=== PATIENT | male | born 1995 | race Caucasian/White ===

== ENCOUNTER 2019-01-13 11:10 | Emergency (ER) | payer SELFPAY ==
[2019-01-13 11:11] VITALS: BP 119/71; PULSE 85; RESP 16; TEMP 36.8; O2SAT 99; BMI 22.9
--- NOTE | 2019-01-13 11:45 | ED.VISSUMM ---
- ER Visit Summary Date of Service: 01/13/19 Chief Complaint: Dental pain History of Present Illness: The patient is a 23 M who presents with left upper dental pain and swelling that began today. Patient describes the pain is stabbing and throbbing. Patient states pain is over the left upper second molar and left upper cheek. Patient admits to swelling of his jaw and face. Patient admits to a fever of 101. Patient also admits to cold sensitivity. Patient states she does not have a dentist. Physical Examination: Vital signs are stable. Patient is afebrile. Patient is in no acute distress. Oral mucosa is pink and moist. Oropharynx is clear. Airway is patent. There are multiple dental caries noted. There is tenderness over the left upper second molar. There is some mild gingival edema around this tooth. There is also edema of the left cheek. There is no fluctuance or drainage noted. Neck is supple. Trachea is midline. There is no JVD noted. Heart was regular rate and rhythm. Lungs are clear and equal bilateral. Emergency Department Course and Treatment: Patient was given a prescription for amoxicillin. Patient was instructed to follow-up with a dentist in 5-7 days. Patient was instructed to use ice to the area. Patient was instructed to return if worse in any way. Patient understood and was agreeable with the plan. All questions were answered. Disposition: Discharge home Impression: Infected dental caries This note was generated with Revert dictation software. It may contain incorrect words, spelling, and punctuation that were not noted in review of the chart prior to signing ED Disposition - Plan for ED Patient: Disposition: Home or Assisted Living Diagnosis: Dental abscess Instructions: ED Abscess Dental Prescriptions: Amoxicillin 500 mg PO TID #30 tab Additional Instructions: You will need to follow-up with a dentist for definitive care of your teeth.
[2019-01-13 11:55] VITALS: PULSE 83; RESP 16
== END 2019-01-13 11:56 | disposition home or self-care (01) ==
PROVIDERS: Emergency Provider Emergency Medicine
DX: K04.7 Periapical abscess without sinus (principal); K02.9 Dental caries, unspecified; Z72.0 Tobacco use
CPT/HCPCS: 99282

== ENCOUNTER 2019-03-19 21:20 | Emergency (ER) | payer SELFPAY ==
[2019-03-19 21:22] VITALS: BP 114/64; PULSE 88; RESP 16; TEMP 36.3; O2SAT 97; BMI 20.7
--- NOTE | 2019-03-19 21:50 | RAD_ITS ---
STUDY: X-RAY - RIGHT WRIST REASON FOR EXAM: Male, 23 years old. Pain status post fall. TECHNIQUE: 3 view(s) of the wrist were obtained. COMPARISON: None. FINDINGS: Normal visualized distal radius and ulna. Normal radiocarpal articulation. Normal distal radioulnar articulation. Normal carpal bones. Normal carpal articulations. Normal carpometacarpal articulation of the thumb. Normal second through fifth carpometacarpal articulations. Normal visualized metacarpal bones. The soft tissue structures are unremarkable. RAD/Wrist min 3 Views IMPRESSION: Normal x-ray examination of the wrist. Electronically Signed: Dahlia Vera MD at 22:05 EDT Tel , Service support ,
--- NOTE | 2019-03-19 21:53 | ED.VIS.GEN ---
History of Present Illness Chief Complaint: Upper Extremity Injury Informant: Patient Onset: Today Current Severity: Mild Narrative: He was mowing grass he fell into the type of hole he used his hand to brace his fall injured his right wrist today no other complaints he is able to take nonsteroidals he has no head neck chest or abdominal pain no numbness 6 paresthesias most of his pain is over the ulnar side of the right wrist denies a past history Past Medical History - Allergies and Home Meds Allergies/Adverse Reactions: Allergies aspirin [ASA] Allergy (Verified 03/19/19 21:23) Other Primary Care Physician: Care Physician,No Primary [Primary Care Provider] - Past Medical History: None Smoking Status: Unknown if ever smoked Review of Systems All systems negative except as indicated General: Denies: Chills, Fever, Sweats Eyes: Denies: Visual changes - bilaterally, Diplopia ENT: Denies: Rhinorrhea, Sore throat Cardiovascular: Denies: Chest pain, Palpitations Respiratory: Denies: Dyspnea, Cough, Dyspnea on exertion Gastrointestinal: Denies: Abdominal pain, Nausea, Vomiting, Diarrhea, Melena, Hematochezia Genitourinary: Denies: Dysuria, Hematuria, Frequency Musculoskeletal: Reports: Extremity Pain. Denies: Back pain Skin: Denies: Rash, Wounds Neurological: Denies: Headache, Weakness, Numbness Physical Exam Vital Signs/Narrative: Vital Signs Temp Pulse Resp BP Pulse Ox 03/19/19 21:22 97.4 F L 88 16 114/64 97 General: Well nourished, Well developed, No Acute Distress Head: Normocephalic, Atraumatic Eyes: Perrl, EOMI ENT: Moist mucous membranes, No rhinorrhea Neck: Supple, Nontender Cardiovascular: Regular rate, Regular rhythm, No murmurs Respiratory: No distress, CTA bilaterally, Chest nontender Abdomen: Soft, Nontender, Nondistended, Normal bowel sounds Back: Nontender, Normal Inspection Extremities: No edema, Tenderness, - - He has decreased range of motion to the right wrist there is no instability deformity he has some discomfort over the ulnar side of the wrist hand function is normal finger cascade appears normal thumb function is normal sensation is normal radial pulses normal cap refill normal all digits Skin: Normal color, No rash Neurological: Alert, Oriented x3, Cranial nerves II-XII grossly intact, Normal Strength, Normal Sensation Psychological: Normal affect, Normal Mood Diagnostic/Tx/Re-eval - Medical Decision Making The patient differential certainly include fracture he is medicated x-rays obtained The wrist x-ray per radiology shows nothing acute I explained to the concept of an occult injury, he started on a Velcro wrist splint for immobilization prefabricated, he will take any medication [id number] he does not take for pain he saw Dr. Riley who is outpatient providers return for change in symptoms Final impression Acute right wrist injury ED Disposition - Plan for ED Patient: Diagnosis: Wrist injury Referrals: Care Physician,No Primary [Primary Care Provider] - Moe Riley MD [STAFF PHYSICIAN] -
[2019-03-19] MEDS: HYDROcodone Bitartrate/Apap 5/325 Tablet PO (21:59)
[2019-03-19] MEDS: Ibuprofen 600 MG Tablet PO (21:59)
[2019-03-19 23:08] VITALS: RESP 16
== END 2019-03-19 23:08 | disposition home or self-care (01) ==
PROVIDERS: Emergency Provider Emergency Medicine; Family Provider Family Medicine; PCP Family Medicine
DX: S69.91XA Unspecified injury of right wrist, hand and finger(s), initial encounter (principal); W17.2XXA Fall into hole, initial encounter; Y93.9 Activity, unspecified; Y92.9 Unspecified place or not applicable
CPT/HCPCS: 73110; 99284

== ENCOUNTER 2020-01-26 14:49 | Emergency (ER) | payer MEDICAID, SELFPAY ==
[2020-01-26 14:50] VITALS: BP 120/81; PULSE 98; RESP 16; TEMP 37.3; O2SAT 97; BMI 24.3
--- NOTE | 2020-01-26 16:13 | ED.VISSUMM ---
- ER Visit Summary Date of Service: 01/26/20 Chief Complaint: Right thigh pain History of Present Illness: The patient is a 24 M who presents with pain in his right thigh that began 1 week ago. Patient states he was riding a bicycle between [place] and [place] and felt a pop in his right thigh. Patient states the pain is worse with weightbearing. Patient describes the pain as aching. Patient denies any paresthesias or weakness. Patient states she has been having difficulty moving his right leg due to the pain but denies any weakness. Physical Examination: Vital signs are stable. Patient is afebrile. Patient is in no acute distress. Musculoskeletal exam reveals tenderness over the anterior medial aspect of the right thigh. There is no edema or ecchymosis. There is no bony crepitance or step-off. There is no obvious deformity. Strength is 5/5 in extension of the knee and flexion of the hip. There are no sensory deficits noted. Range of motion was limited in all motion secondary to pain. Pedal pulses are equal bilateral. There are no sensory deficits noted. Emergency Department Course and Treatment: Patient was instructed to use ice to the area. Patient was given a prescription for ibuprofen. Patient was instructed to follow-up with his primary care physician in 5 to 7 days. Patient was given crutches. Patient understood and was agreeable with the plan. All questions were answered. Disposition: Discharge home Impression: Muscle strain right thigh This note was generated with Emergent One dictation software. It may contain incorrect words, spelling, and punctuation that were not noted in review of the chart prior to signing ED Disposition - Plan for ED Patient: Disposition: Home or Assisted Living Diagnosis: Muscle strain of right thigh Instructions: ED Strain Muscle Ext Prescriptions: Ibuprofen [Motrin] 800 mg PO TID PRN PRN #20 tab PRN Reason: Pain Score 1-10/10 Prescription Printed Referrals: Avril Coyle MD [NON-STAFF] - 3-5 Days
== END 2020-01-26 16:37 | disposition home or self-care (01) ==
PROVIDERS: Emergency Provider Emergency Medicine
DX: S76.911A Strain of unspecified muscles, fascia and tendons at thigh level, right thigh, initial encounter (principal); X58.XXXA Exposure to other specified factors, initial encounter; Y93.55 Activity, bike riding; Y92.9 Unspecified place or not applicable; F17.200 Nicotine dependence, unspecified, uncomplicated
CPT/HCPCS: 99282

== ENCOUNTER 2020-03-17 20:14 | Emergency (ER) | payer MEDICAID, SELFPAY ==
[2020-03-17 20:14] VITALS: BP 143/74; PULSE 71; RESP 16; TEMP 36.6; O2SAT 99; BMI 22.8
--- NOTE | 2020-03-17 20:36 | CT_ITS ---
STUDY: CT ABDOMEN AND PELVIS WITH CONTRAST REASON FOR EXAM: Male, 24 years old. RLQ PAIN AND HEMATURIA TODAY RADIATION DOSAGE (If Supplied By Facility): CTDIvol = ( 14.64 ) mGy, DLP = ( 718.49 ) mGycm TECHNIQUE: Transaxial images were obtained from the dome of the diaphragm to the symphysis pubis without oral contrast. Oral and amp; IV Gastrografin and amp; 100mL Isovue-370 was administered. Sagittal and coronal images were reconstructed. Individualized dose optimization techniques were used for this CT. COMPARISON: None. FINDINGS: The visualized lung bases are unremarkable. The visualized portions of the heart are within normal limits. Normal liver. Normal gallbladder and extrahepatic biliary system. Normal spleen. Normal pancreas. Normal bilateral adrenal glands. Subcentimeter simple cyst upper pole right kidney. Otherwise normal right kidney Normal left kidney. Negative for hydronephrosis, renal, ureteral or bladder stones. Food filled stomach. Normal small intestine. Normal colon. The appendix is not identified with complete certainty. I think a small portion of the appendix is identified on sagittal image #57 and coronal images 39 through 43 which appears normal size. Negative for any inflammation in the right abdomen. Normal abdominal aorta. Normal inferior vena cava. Normal retroperitoneum. Normal urinary bladder. Normal abdominal wall. Normal osseous structures. CT/Abdomen/Pelvis WITH Contrast IMPRESSION: No acute bowel related findings. Negative for evidence of obstruction, perforation or inflammatory bowel changes. At least a portion of the appendix is identified and appears unremarkable with no evidence of inflammation in the right lower quadrant. Normal kidneys bilaterally without hydronephrosis, renal or ureteral stones. Unremarkable urinary bladder. Subcentimeter cyst of the right kidney. No additional workup evaluated. Unremarkable liver, spleen and pancreas with a nondistended gallbladder. Electronically Signed: Jennifer Brar MD at 23:15 EDT , Service support ,
[2020-03-17 20:42] LABS: Color, Urine Yellow (Yellow); Glucose, Dipstick Normal (Normal); Ketone-Dipstick 5 mg/dl (Negative); Leukocyte Esterase-Dipstick 25 /ul (Negative); Nitrite-Dipstick Negative (Negative); Occult Blood-Urine Negative /ul (Negative); Protein-Dipstick 30 mg/dl (Negative); Specific Gravity, Urine 1.025 (1.002-1.030); Urine Clarity Sl. Cloudy (Clear); Urine Urobilinogen 4 mg/dl (Normal)
[2020-03-17 20:43] LABS: Bacteria 0 SEEN /hpf (None Seen); Red Blood Cells-Urine 0 SEEN /hpf (0-5); Squamous Epithelial Cells - UA 0 SEEN /hpf (0-5)
[2020-03-17 20:49] LABS: Urine Bilirubin Dipstick 1 mg/dL (Negative)
[2020-03-17 20:53] LABS: Absolute Neutrophil Count 3.7 X10^3/uL (2.0-7.7); Basophil# 0.07 X10^3/uL; Basophil% 0.9 % (0-1); Eosinophil# 0.24 X10^3/uL; Eosinophils% 3.1 % (0-5); Hematocrit 46.2 % (40-54); Hemoglobin 15.5 g/dL (13.0-16.5); Lymphocyte % 39.6 % (19-41); Mean Corp Hgb Conc 33.5 g/dL (32-36); Mean Corpuscular Hgb 29.7 pg (27.0-32.0); Mean Corpuscular Volume 88.5 fL (80-94); Mean Platelet Vol. 11.8 fl (6.2-12.0); Monocyte# 0.72 X10^3/uL; Monocyte% 9.2 % (0-10); NRBC Flagged by Analyzer 0 % (0-5); Neutrophil # 3.68 X10^3/uL (2.7-7.7); Neutrophil % 47.1 % (47-70); Platelet Count 172 K/mm3 (150-450); RBC Distribution Width CV 13.2 % (11.6-14.6); RBC Distribution Width SD 42.5 fl (35.1-43.9); Red Blood Count 5.22 M/mm3 (4.6-6.2); White Blood Count 7.8 K/mm3 (4.4-11.0)
[2020-03-17 21:03] VITALS: RESP 16
[2020-03-17] MEDS: 0.9% Normal Saline 1,000 ML 125 ML IV (21:05)
[2020-03-17 21:07] LABS: Mucous, Urine 4+ /hpf (<or=2+); White Blood Cells 0-5 SEEN /hpf (0-5)
[2020-03-17 21:08] LABS: Calcium Oxalate Crystals Ur 1+ /hpf (<or=2+)
[2020-03-17 21:09] LABS: Anion Gap 4 (5-15); BUN 9 mg/dL (7-18); BUN/Creat Ratio 9.6 RATIO (10-20); Chloride 108 mmol/L (98-107); Creatinine, Serum 0.93 mg/dL (0.70-1.30); EST Glomerular Filtration Rate 107 mL/min (>60); Est Glom Filt Rate - Afr Amer 129 mL/min (>60); Estimated Creatinine Clearance 127.09 ml/min; Glucose 93 mg/dL (74-106); Potassium 3.9 mmol/L (3.5-5.1); Sodium Level 141 mmol/L (136-145)
[2020-03-17 23:00] VITALS: RESP 16
--- NOTE | 2020-03-17 23:30 | ED.DCSUM_ITS ---
History of Present Illness Chief Complaint: Complaint Narrative: Patient presenting secondary to suprapubic pain. Patient reports that just prior to arrival he had relatively sudden onset of severe pain in his suprapubic region. Patient reports that it was sharp and continuous worse with palpation and movement. Patient states that the pain has somewhat subsided, but now is located in his lower abdomen and his right lower quadrant. Patient does endorse some dysuria and dark-colored urine associated with this. Denies any fevers. Denies any nausea vomiting or diarrhea. Pain is moderate. No history of abdominal surgeries. Review of systems otherwise negative. Past Medical History - Allergies and Home Meds Allergies/Adverse Reactions: Allergies aspirin [ASA] Allergy (Verified 03/17/20 20:16) Other Primary Care Physician: Care Physician,No Primary [Primary Care Provider] - Prior records reviewed: Yes Past Medical History: None Lives: With Family Smoking Status: Current every day smoker Alcohol: Occasional Drugs: None Review of Systems All systems negative except as indicated General: Denies: Chills, Fever, Sweats Eyes: Denies: Visual changes - bilaterally, Diplopia ENT: Denies: Rhinorrhea, Sore throat Cardiovascular: Denies: Chest pain, Palpitations Respiratory: Denies: Dyspnea, Cough, Dyspnea on exertion Gastrointestinal: Reports: Abdominal pain Genitourinary: Reports: Dysuria Musculoskeletal: Denies: Back pain, Extremity Pain Skin: Denies: Rash, Wounds Neurological: Denies: Headache, Weakness, Numbness Physical Exam Vital Signs/Narrative: Vital Signs Temp Pulse Resp BP Pulse Ox 03/17/20 23:00 16 03/17/20 21:03 16 03/17/20 20:14 98 F 71 16 143/74 H 99 Inital Vital Signs reviewed: Yes General: Well nourished, Well developed, No Acute Distress Head: Normocephalic, Atraumatic Eyes: Perrl, EOMI ENT: Moist mucous membranes, No rhinorrhea Neck: Supple, Nontender Cardiovascular: Regular rate, Regular rhythm, No murmurs Respiratory: No distress, CTA bilaterally, Chest nontender Abdomen: Tender - Right lower quadrant with no guarding or rebound Back: Nontender, Normal Inspection Extremities: Nontender, No edema Skin: Normal color, No rash Neurological: Alert, Oriented x3, Cranial nerves II-XII grossly intact, Normal Strength, Normal Sensation Psychological: Normal affect, Normal Mood Diagnostic/Tx/Re-eval Clinical Impression(s) from Imaging Studies Abdomen/Pelvis CT 03/17/20 20:36 IMPRESSION: No acute bowel related findings. Negative for evidence of obstruction, perforation or inflammatory bowel changes. At least a portion of the appendix is identified and appears unremarkable with no evidence of inflammation in the right lower quadrant. Normal kidneys bilaterally without hydronephrosis, renal or ureteral stones. Unremarkable urinary bladder. Subcentimeter cyst of the right kidney. No additional workup evaluated. Unremarkable liver, spleen and pancreas with a nondistended gallbladder. Electronically Signed: Jennifer Brar MD at 23:15 EDT , Service support , Laboratory Data 03/17/20 03/17/20 03/17/20 20:25 20:45 20:45 WBC 7.8 RBC 5.22 Hgb 15.5 Hct 46.2 MCV 88.5 MCH 29.7 MCHC 33.5 RDW Std Deviation 42.5 RDW Coeff of Jessie 13.2 Plt Count 172 MPV 11.8 Immature Gran % (Auto) 0.100 Neut % (Auto) 47.1 Lymph % (Auto) 39.6 [place] % (Auto) 9.2 Eos % (Auto) 3.1 Baso % (Auto) 0.9 Absolute Neuts (auto) 3.7 Absolute Lymphs (auto) 3.10 Nucleated RBC % 0 Sodium 141 Potassium 3.9 Chloride 108 H Carbon Dioxide 29.0 Anion Gap 4 L BUN 9 Creatinine 0.93 Estim Creat Clear Calc 127.09 Est GFR (MDRD) Af Amer 129 Est GFR (MDRD) Non-Af 107 BUN/Creatinine Ratio 9.6 L Glucose 93 Calcium 9.0 Urine Color Yellow Urine Clarity Sl. Cloudy Urine pH 5.0 Ur Specific [place] 1.025 Urine Protein 30 H Urine Glucose (UA) Normal Urine Ketones 5 H Urine Occult Blood Negative Urine Nitrite Negative Urine Bilirubin 1 H Urine Urobilinogen 4 H Ur Leukocyte Esterase 25 H Urine RBC 0 SEEN Urine WBC 0-5 SEEN Ur Squamous Epith Cells 0 SEEN Calcium Oxalate Crystal 1+ Urine Bacteria 0 SEEN Urine Mucus 4+ - Medical Decision Making Patient presented secondary to abdominal pain. This did localize in the right lower quadrant, although the sudden onset would seem consistent with stone disease, his location would be concerning for appendicitis. Work-up was obtained. CBC and chemistry unremarkable. Urinalysis shows calcium oxalate crystals but no infection. CT abdomen and pelvis was negative for any acute pathology per radiology. Given the calcium oxalate crystals in the patient's urine am suspicious for a passed renal stone. Patient was symptom-free upon repeat evaluation. Patient was discharged with outpatient follow-up with primary care as needed. ED Disposition - Plan for ED Patient: Disposition: Home or Assisted Living Diagnosis: Urolithiasis Instructions: ED RENAL STONE Passed Referrals: Elisabet Philippe [NON-STAFF] - As Needed
[2020-03-17 23:42] VITALS: BP 136/80; PULSE 87; RESP 16; O2SAT 98
== END 2020-03-17 23:43 | disposition home or self-care (01) ==
PROVIDERS: Emergency Provider Emergency Medicine
DX: N20.0 Calculus of kidney (principal); F17.200 Nicotine dependence, unspecified, uncomplicated
CPT/HCPCS: 74177; 80048; 81001; 85025; 96360; 96361; 99282; J7030; Q9967; A4216

== ENCOUNTER 2020-05-31 19:33 | Emergency (ER) | payer MEDICAID, SELFPAY ==
[2020-05-31 19:34] VITALS: BP 127/84; PULSE 63; RESP 18; TEMP 36.9; O2SAT 99; BMI 23.6
[2020-05-31 19:43] VITALS: BP 137/75; PULSE 58; RESP 11; O2SAT 99
--- NOTE | 2020-05-31 19:54 | EKG12_ITS ---
Test Reason : CP Blood Pressure : / mmHG Vent. Rate : 065 BPM Atrial Rate : 065 BPM P-R Int : 144 ms QRS Dur : 100 ms QT Int : 370 ms P-R-T Axes : 055 054 030 degrees QTc Int : 384 ms Sinus rhythm with marked sinus arrhythmia Moderate voltage criteria for LVH, may be normal variant Borderline ECG Confirmed by SHEILA HILL ([id number]), online editor KUSH JAMES ([id number]) on 06/06/2020 9:50:38 AM Referred By: HANSEL Confirmed By:SHEILA HILL
--- NOTE | 2020-05-31 19:55 | ED.VIS.CHEST ---
History of Present Illness Chief Complaint: Chest Pain Informant: Patient, EMS Onset: Hours - 2 Activity at onset: - - Argument with fijasson?'s mother Timing: Continuous Quality: - - [place] Location: Left Chest Current Severity: Mild Maximum Severity: Moderate Worsened By: Nothing Relieved By: Nothing Associated Symptoms: Dyspnea. Negative for: Nausea, Vomiting, Diaphoresis, Cough, Fever, Lightheadedness, Palpitations Narrative: Patient states he has anxiety, and was in a verbal altercation with his fijasson?'s mother today, once she found out that the patient's fianc? had a positive home test. As a result, he started developing chest discomfort during the argument. 911 was called. He developed discomfort going down into his left upper extremity including tingling in his fingertips. Discomfort nonpleuritic. No recent travel, surgery/hospitalization or other reason for immobilization, no leg pain or swelling recently, no history of DVT or PE. No history of heart problems that he knows of. He does not use any illicit substances. He is feeling much better now. Patient is alone in the room and not feeling anxious anymore. He states he has had anxiety attacks in the past but never had chest discomfort with them like he did with this episode. - Past Medical History (1) Bipolar 1 disorder Status: Chronic (2) Anxiety Status: Chronic Past Medical History - Allergies and Home Meds Allergies/Adverse Reactions: Allergies aspirin [ASA] Allergy (Verified 05/31/20 19:37) Other Primary Care Physician: Doctor,Your [STAFF PHYSICIAN] - 5-7 Days Smoking Status: Current every day smoker Drugs: None Review of Systems General: Denies: Chills, Fever, Sweats Eyes: Denies: Visual changes - bilaterally, Diplopia ENT: Denies: Rhinorrhea, Sore throat Cardiovascular: Reports: Chest pain. Denies: Palpitations Respiratory: Reports: Dyspnea. Denies: Cough, Dyspnea on exertion Gastrointestinal: Denies: Abdominal pain, Nausea, Vomiting, Diarrhea, Melena, Hematochezia Genitourinary: Denies: Dysuria, Hematuria, Frequency Musculoskeletal: Reports: Extremity Pain. Denies: Myalgias, Neck pain, Back pain, Swelling Skin: Denies: Rash, Wounds Neurological: Denies: Headache, Weakness, Numbness Physical Exam Vital Signs/Narrative: Vital Signs Temp Pulse Resp BP Pulse Ox 05/31/20 19:34 98.5 F 63 18 127/84 H 99 Inital Vital Signs reviewed: Yes General: Well nourished, Well developed, No Acute Distress Head: Normocephalic, Atraumatic Eyes: Perrl, EOMI ENT: Moist mucous membranes, No rhinorrhea Neck: Supple, Nontender, No JVD Cardiovascular: Regular rate, Regular rhythm, No murmurs, Normal S1, Normal S2, - - Equal bilateral 2+/4 radial pulses. Negative for: Tachycardia Respiratory: No distress, CTA bilaterally, Chest nontender Abdomen: Soft, Nontender, Nondistended, Normal bowel sounds Back: Nontender, Normal Inspection Extremities: Nontender, No edema. Negative for: Calf Tenderness Skin: Normal color, No rash, No Trauma Neurological: Alert, Oriented x3, Cranial nerves II-XII grossly intact, Normal Strength, Normal Sensation Psychological: Normal affect, Normal Mood Diagnostic/Tx/Re-eval Impressions Chest X-Ray 05/31/20 20:13 IMPRESSION: No acute cardiopulmonary disease. Electronically Signed: John Hernandez DO at 20:23 EDT Tel [phone], Service support , 05/31/20 20:13 Chest 1 View (Portable) [RAD] Stat Laboratory Results 05/31/20 05/31/20 20:08 20:08 WBC 10.2 RBC 5.26 Hgb 15.9 Hct 47.7 MCV 90.7 MCH 30.2 MCHC 33.3 RDW Std Deviation 41.1 RDW Coeff of Jessie 12.5 Plt Count 168 MPV 11.4 Immature Gran % (Auto) 0.300 Neut % (Auto) 64.7 Lymph % (Auto) 24.8 [place] % (Auto) 8.0 Eos % (Auto) 1.7 Baso % (Auto) 0.5 Absolute Neuts (auto) 6.6 Absolute Lymphs (auto) 2.53 Nucleated RBC % 0 Sodium 140 Potassium 3.8 Chloride 107 Carbon Dioxide 28.0 Anion Gap 5 BUN 14 Creatinine 0.77 Estim Creat Clear Calc 155.38 Est GFR (MDRD) Af Amer 162 Est GFR (MDRD) Non-Af 134 BUN/Creatinine Ratio 18.2 Glucose 85 Calcium 9.3 Troponin I < 0.015 - Rhythm Strip Rhythm Strip: Sinus Rhythm - With sinus arrhythmia Rate: 65 Ectopy: None - EKG Initial EKG Interpretation: No Acute Injury Pattern, Sinus Arrythmia Treatment: GI Cocktail Repeat Eval: Pain Free JIGAR Risk: No Positive JIGAR Elements Score: 0 - Medical Decision Making Patient's discomfort went away with a GI cocktail and his work-up is negative. I feel this was very unlikely to be cardiac in nature, I feel he can be discharged home safely without performing a 3-hour delta, discussed everything with the patient he is comfortable with this plan will follow-up with his doctor. On discharge his blood pressure is 122/76. ED Disposition - Plan for ED Patient: Disposition: Home or Assisted Living Diagnosis: Atypical chest pain Instructions: ED Chest Pain NonCardiac Referrals: Doctor,Your [STAFF PHYSICIAN] - 5-7 Days
[2020-05-31] MEDS: Mag Hydrox/Al Hydrox/Simeth 30 ML UDC PO (20:07)
--- NOTE | 2020-05-31 20:13 | RAD_ITS ---
STUDY: X-RAY CHEST REASON FOR EXAM: Male, 24 years old. Chest pain. TECHNIQUE: Single AP portable view of the chest. COMPARISON: None. FINDINGS: The lungs are clear and expanded. There is no demonstrated pleural abnormality. Normal size heart. Normal mediastinum and ylnn. Normal visualized pulmonary arteries. Normal visualized aortic arch and descending thoracic aorta. Normal visualized thoracic spine. Normal visualized ribs, clavicles, and shoulders. There is no demonstrated abnormality of the visualized soft tissue structures of the upper abdomen. RAD/Chest 1 View (Portable) IMPRESSION: No acute cardiopulmonary disease. Electronically Signed: John Hernandez DO at 20:23 EDT Tel [phone], Service support ,
[2020-05-31 20:15] LABS: Absolute Lymphocyte Count 2.53 X10^3/uL (0.83-4.51); Absolute Neutrophil Count 6.6 X10^3/uL (2.0-7.7); Basophil# 0.05 X10^3/uL; Basophil% 0.5 % (0-1); Eosinophil# 0.17 X10^3/uL; Eosinophils% 1.7 % (0-5); Hematocrit 47.7 % (40-54); Hemoglobin 15.9 g/dL (13.0-16.5); Lymphocyte # 2.53 X10^3/ul (4.0); Lymphocyte % 24.8 % (19-41); Mean Corp Hgb Conc 33.3 g/dL (32-36); Mean Corpuscular Hgb 30.2 pg (27.0-32.0); Mean Corpuscular Volume 90.7 fL (80-94); Mean Platelet Vol. 11.4 fl (6.2-12.0); Monocyte# 0.82 X10^3/uL; NRBC Flagged by Analyzer 0 % (0-5); Neutrophil % 64.7 % (47-70); Platelet Count 168 K/mm3 (150-450); RBC Distribution Width CV 12.5 % (11.6-14.6); RBC Distribution Width SD 41.1 fl (35.1-43.9); Red Blood Count 5.26 M/mm3 (4.6-6.2); White Blood Count 10.2 K/mm3 (4.4-11.0)
[2020-05-31 20:38] LABS: Anion Gap 5 (5-15); BUN 14 mg/dL (7-18); BUN/Creat Ratio 18.2 RATIO (10-20); Calcium,Total 9.3 mg/dL (8.5-10.1); Chloride 107 mmol/L (98-107); Creatinine, Serum 0.77 mg/dL (0.70-1.30); EST Glomerular Filtration Rate 134 mL/min (>60); Est Glom Filt Rate - Afr Amer 162 mL/min (>60); Estimated Creatinine Clearance 155.38 ml/min; Glucose 85 mg/dL (74-106); Potassium 3.8 mmol/L (3.5-5.1); Sodium Level 140 mmol/L (136-145)
[2020-05-31 21:04] VITALS: BP 120/77; PULSE 69; RESP 16; O2SAT 100
== END 2020-05-31 21:05 | disposition home or self-care (01) ==
PROVIDERS: Emergency Provider Emergency Medicine
DX: R07.89 Other chest pain (principal); R06.00 Dyspnea, unspecified; F31.9 Bipolar disorder, unspecified; F41.9 Anxiety disorder, unspecified; F17.200 Nicotine dependence, unspecified, uncomplicated
CPT/HCPCS: 71045; 80048; 84484; 85025; 93005; 99285; A4216

== ENCOUNTER 2020-07-31 01:50 | Emergency (ER) | payer MEDICAID, SELFPAY ==
[2020-07-31 01:50] VITALS: BP 171/82; PULSE 102; RESP 16; TEMP 36.8; O2SAT 99; BMI 25.1
--- NOTE | 2020-07-31 01:53 | ED.DCSUM_ITS ---
History of Present Illness Chief Complaint: Upper Extremity Injury Informant: Patient Occurred: Yesterday - if injured; I'm not sure what I did to it Context: - - upon waking up this AM, over 12 hrs ago Current Severity: 10 Maximum Severity: /10 Worsened by: moving fingers Relieved by: remaining still Associated Symptoms: Negative for: Parasthesia, Weakness, Loss of Funtion Narrative: [id number] male states he woke up with pain in his hand that has been there all day, he states he injured it but does not remember what he did to it. - Past Medical History (1) Anxiety Status: Chronic (2) Bipolar 1 disorder Status: Chronic Past Medical History - Allergies and Home Meds Allergies/Adverse Reactions: Allergies aspirin [ASA] Allergy (Verified 07/31/20 01:53) Other Primary Care Physician: Care Physician,No Primary [NON-STAFF] - Smoking Status: Current every day smoker Review of Systems General: Denies: Chills, Fever, Sweats Musculoskeletal: Reports: Extremity Pain Skin: Denies: Rash, Wounds Neurological: Denies: Headache, Weakness, Numbness Physical Exam Vital Signs/Narrative: Vital Signs Temp Pulse Resp BP Pulse Ox 07/31/20 01:50 98.2 F 102 H 16 171/82 H 99 General: Well nourished, Well developed, - - Well-appearing no distress Head: Normocephalic, Atraumatic Extremeties: Normal-appearing right hand. All fingers extend normally. He is able to flex his fingers just barely, he does not appear to put forth much effort, I am able to confirm that his FDP tendons are intact throughout all fingers, he is not able to bend his fingers when attempting to isolate the FDS. He has tenderness dorsally at the distal aspects of metacarpals 3-5. Nothing else is tender. No deformities. Unable to assess for rotational deformity of the small finger. Skin: Normal color, No rash, No Trauma Neurological: Alert, Oriented x3, Cranial nerves II-XII grossly intact, Normal Strength, Normal Sensation, Normal Gait Diagnostic/Tx/Re-eval - Medical Decision Making On my interpretation 3 view x-ray series of the right hand is normal. Patient reassured, given ibuprofen, and appropriate discharge instructions with [facility]- doctor since he has none. ED Disposition - Plan for ED Patient: Disposition: Home or Assisted Living Diagnosis: Contusion of right hand Instructions: ED HAND CONTUSION Referrals: Axel Lua DO [STAFF PHYSICIAN] - As Needed
--- NOTE | 2020-07-31 01:58 | RAD_ITS ---
STUDY: X-RAY - RIGHT HAND REASON FOR EXAM: Male, 24 years old. RIGHT HAND PAIN, NKI. TECHNIQUE: 3 view(s) of the hand. COMPARISON: None. FINDINGS: Normal radiocarpal articulation. Normal distal radioulnar joint. Normal visualized carpal bones. Normal carpal articulations Normal carpometacarpal articulation of the thumb. Normal second through fifth carpometacarpal joints. Normal metacarpi. Normal metacarpophalangeal joint of the thumb. Normal interphalangeal joint of the thumb. Normal proximal and distal phalanges of the thumb. Normal metacarpophalangeal joints of the second through fifth fingers. Normal proximal and distal interphalangeal joints of the second through fifth fingers. Normal phalanges of the second through fifth fingers. The soft tissue structures are unremarkable. RAD/Hand Min 3 Views IMPRESSION: Normal x-ray examination of the hand. Electronically Signed: Jaydon Britt, at 2:11 EDT Tel , Service support ,
[2020-07-31] MEDS: Ibuprofen 600 MG Tablet PO (02:23)
== END 2020-07-31 02:25 | disposition home or self-care (01) ==
LOC: ED 02:11
PROVIDERS: Emergency Provider Emergency Medicine
DX: S60.221A Contusion of right hand, initial encounter (principal); X58.XXXA Exposure to other specified factors, initial encounter; Y93.9 Activity, unspecified; Y92.9 Unspecified place or not applicable; F41.9 Anxiety disorder, unspecified; F31.9 Bipolar disorder, unspecified; Z79.899 Other long term (current) drug therapy; F17.200 Nicotine dependence, unspecified, uncomplicated
CPT/HCPCS: 73130; 99283

== ENCOUNTER 2020-09-09 16:52 | Emergency (ER) | payer MEDICAID, SELFPAY ==
[2020-09-09 16:54] VITALS: BP 131/80; PULSE 92; RESP 17; TEMP 36.3; O2SAT 99; BMI 25.2
--- NOTE | 2020-09-09 17:05 | ED.VIS.GEN ---
History of Present Illness Chief Complaint: Dental Informant: Patient Onset: Yesterday Narrative: 25 year old male presents with dental pain on his left lower tooth. He states has a rotten tooth there that occasionally causes swelling and it usually resolves with antibiotics. He started having swelling and pain again last night. Denies fevers, chills, nausea, vomiting, or difficulty swallowing or breathing. Past Medical History - Allergies and Home Meds Allergies/Adverse Reactions: Allergies aspirin [ASA] Allergy (Verified 09/09/20 16:53) Other Primary Care Physician: Elisabet Philippe [Primary Care Provider] - Past Medical History: None Smoking Status: Current every day smoker Review of Systems General: Denies: Chills, Fever, Sweats Eyes: Denies: Visual changes - bilaterally, Diplopia ENT: Reports: - - Dental pain. Denies: Rhinorrhea, Sore throat Cardiovascular: Denies: Chest pain, Palpitations Respiratory: Denies: Dyspnea, Cough, Dyspnea on exertion Gastrointestinal: Denies: Abdominal pain, Nausea, Vomiting, Diarrhea, Melena, Hematochezia Genitourinary: Denies: Dysuria, Hematuria, Frequency Musculoskeletal: Denies: Back pain, Extremity Pain Skin: Denies: Rash, Wounds Neurological: Denies: Headache, Weakness, Numbness Physical Exam Vital Signs/Narrative: Vital Signs Temp Pulse Resp BP Pulse Ox 09/09/20 16:54 97.4 F L 92 17 131/80 H 99 Inital Vital Signs reviewed: Yes General: Well nourished, Well developed, No Acute Distress Head: Normocephalic, Atraumatic Eyes: Perrl, EOMI ENT: - - Skin appears normal, mild swelling of left cheek, diffuse dental caries, left lower first premolar has caries and pain with palpation, small palpable abscess on gingiva, no trismus or tongue elevation, sublingual space is soft, airway intact, neck has good range of motion. Diagnostic/Tx/Re-eval - Medical Decision Making Patient presented with dental pain. He appears well and nontoxic. Vital signs within normal limits. He has extensive dental caries. There is a periapical abscess overlying his left posterior molars. Sublingual space is soft and airway is intact. No signs of cellulitis. He refused incision and drainage. I told him that it will likely not get better antibiotics alone. He expressed understanding states he will return if it worsens. He was given first dose of Clindamycin here and a prescription for home as well as a dentist referral. He will take [id number] pain medication. He was discharged home in stable condition. ED Disposition - Plan for ED Patient: Disposition: Home or Assisted Living Diagnosis: Dental caries, Periapical abscess Instructions: Dental Abscess Prescriptions: Clindamycin HCl [Cleocin] 300 mg PO Q6H #40 cap Transmission Status: Sent to [facility] Referrals: Elisabet Philippe [Primary Care Provider] -
--- NOTE | 2020-09-09 17:10 | ED.DCSUM_ITS ---
- ER Visit Summary Date of Service: 09/09/20 Chief Complaint: [Dental pain] History of Present Illness: The patient is a 25 M [presents to the emergency department with dental pain that started 2 days ago. Patient states he has history of poor dentition. Patient is concerned about infection and would like an antibiotic. He does not have a dentist currently. He denies any fevers or chills or sweats. Patient is adamant that he actually does not want to have the suspected abscess drained. Patient has history of depression.] Physical Examination: [HEENT-PERRLA, EOMI. Cranial nerves II through XII grossly intact. TMs clear. Mucous membranes moist. No adenopathy. Dentition- patient has multiple broken carried teeth noted. Patient has gingival swelling adjacent to the left lower molars that is fluctuant and tender to palpation. There is no facial cellulitis. Cardiovascular-regular rate and rhythm without murmur or ectopy Lungs-clear to auscultation, chest wall stable without crepitus or subcu emphysema Abdomen-normoactive bowel sounds, soft, nontender, no rebound or rigidity, no peritoneal signs. Extremities-intact ?4, normal range of motion, normal pulses, atraumatic] Test Results: [None indicated] Emergency Department Course and Treatment: [I recommend the patient that we perform an incision and drainage of suspected abscess however he is refusing this. I explained to him that antibiotics alone may not take care of the infection. Patient understands this and states that he will return if symptoms worsen. He would like a referral to a dentist.] Treatment Plan: [Patient to follow-up with a dentist within next 3 to 5 days.] Disposition: [Discharged home stable condition. Patient advised to return if worsening pain, swelling, fevers, or condition should worsen anyway.] Impression: [Dental pain secondary to dental abscess] This note was generated with [employer] dictation software. It may contain incorrect words, spelling, and punctuation that were not noted in review of the chart prior to signing ED Disposition - Plan for ED Patient: Referrals: Elisabet Philippe [Primary Care Provider] -
[2020-09-09] MEDS: Clindamycin HCl 150 MG Capsule 300 MG PO (17:22)
== END 2020-09-09 17:22 | disposition home or self-care (01) ==
LOC: ED 17:12
PROVIDERS: Emergency Provider Physician Assistant
DX: K04.7 Periapical abscess without sinus (principal); S02.5XXA Fracture of tooth (traumatic), initial encounter for closed fracture; K02.9 Dental caries, unspecified; X58.XXXA Exposure to other specified factors, initial encounter; Y93.9 Activity, unspecified; Y92.9 Unspecified place or not applicable; F32.9 Major depressive disorder, single episode, unspecified; Z79.899 Other long term (current) drug therapy
CPT/HCPCS: 99282

== ENCOUNTER 2021-03-01 12:47 | Emergency (ER) | payer MEDICAID, SELFPAY ==
[2021-03-01 12:48] VITALS: BP 123/69; PULSE 85; RESP 16; TEMP 36.4; O2SAT 97; BMI 25.7
--- NOTE | 2021-03-01 13:15 | RAD_ITS ---
STUDY: X-RAY - RIGHT FOOT CLINICAL: Right foot pain, right foot injury. TECHNIQUE: 3 view(s) of the foot. COMPARISON: None. FINDINGS: Normal talus, calcaneus, and tarsal bones. Normal visualized subtalar, talonavicular, calcaneocuboid, tarsal and tarsometatarsal articulations. Normal metatarsi. Normal metatarsophalangeal joint of the great toe. Normal tibial and fibular sesamoid bones. Normal interphalangeal joint of the great toe. Normal phalanges of the great toe. Normal second through fifth metatarsophalangeal joints. Normal interphalangeal joints and phalanges of the lesser toes. The soft tissue structures are unremarkable. RAD/Foot min 3 Views IMPRESSION: Unremarkable x-ray examination of the right foot. Electronically Signed: Leander Marin MD at 13:45 EDT Tel , Service support ,
--- NOTE | 2021-03-01 13:15 | RAD_ITS ---
STUDY: X-RAY - RIGHT ANKLE REASON FOR EXAM: Right ankle pain, right ankle injury. TECHNIQUE: 3 view(s) of the ankle. COMPARISON: None. FINDINGS: Normal visualized distal tibia and fibula. Normal medial and lateral malleoli. Normal tibiotalar articulation and ankle mortise. Normal visualized talus and calcaneus. The visualized subtalar, talonavicular, calcaneocuboid and tarsal articulations are normal. The soft tissue structures are unremarkable. RAD/Ankle min 3 Views IMPRESSION: Unremarkable x-ray examination of the right ankle. Electronically Signed: Leander Marin MD at 13:45 EDT Tel , Service support ,
[2021-03-01] MEDS: Naproxen 500 MG Tablet PO (13:19)
--- NOTE | 2021-03-01 13:42 | ED.RN ---
PT STATES HE TRIPPED OVER WIRES AT WORK TODAY AND IS FILING WORKERS COMP. 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 HE STATES HE IS UNABLE TO PROVIDE SUPERVISORS NUMBER BECAUSE HIS PHONE ISNT WORKING RIGHT NOW, AND HE JUST STARTED HIS FIRST DAY TODAY. THIS RN CALLED SURGE STAFF LAC DU FLAMBEAU AT [phone] TO SEE IF PT NEEDS DRUG SCREEN. LAC DU FLAMBEAU STATES THAT SHE WAS TOLD THAT DAVID DID NOT SHOW UP TO WORK TODAY. SHE IS UNSURE AT THIS TIME IF PATIENT NEEDS DRUG SCREEN BUT SHE WILL CALL BACK LUIS. PT ALSO TOLD REGISTRATION JUAN JOSE THAT HE IS UNEMPLOYED BECAUSE PT SHOWED UP TO WORK [employer]. WHEN THIS RN WENT BACK INTO ROOM TO CLARIFY IF HE IS FILING WORKERS COMP, HE STATES HE WAS CONFUSED OUT IN TRIAGE DUE TO HIS PAIN SO HE MISUNDERSTOOD AND DOES NOT WANT TO FILE UNDER WORKERS COMP. THIS RN SPOKE WITH WORKERS COMP STAFFING JASE BORREGO TO CLARIFY. SINCE PT IS NOT FILING UNDER WORKERS COMP, PT DOES NOT NEED DRUG SCREEN AT THIS TIME.
--- NOTE | 2021-03-01 14:50 | ED.VIS.LOWEX ---
HPI History of Present Illness Chief Complaint: Lower Extremity Injury Informant: patient Occured/Mechanism Comment: Tripped over wires and fell Onset/Context/Timing Context: Sudden Onset Current Severity: Mild Maximum Severity: Moderate Narrative Narrative: Patient presents with right ankle and foot pain. He states he was at work today and tripped over some wires that were on the floor. He rolled his ankle. He had difficulty with weightbearing since that time and complains of pain across the top of his foot. PFSH PFS Medical History Depression Home Medications paroxetine HCl 20 mg PO DAILY 07/31/20 [History Last Taken Unknown] clindamycin HCl 300 mg PO Q6H #40 cap 09/09/20 [Rx Last Taken Unknown] naproxen [Naprosyn] 500 mg PO BID PRN #20 tab 03/01/21 [Rx Last Taken Unknown] Allergy/AdvReac Type Severity Reaction Status Date / Time aspirin [ASA] Allergy Other Verified 03/01/21 12:49 Social History Smoking Status: Current every day smoker ROS ROS ED Constitutional Constitutional ED: Denies chills or fever(s) Eyes Eyes: Denies change in vision ENT ENT ED: Denies sore throat Cardiovascular Cardiovascular: Denies chest pain Respiratory/Chest Respiratory/Chest: Denies cough or dyspnea Gastrointestinal Gastrointestinal: Denies abdominal pain, diarrhea, nausea or vomiting Genitourinary Genitourinary ED: Denies dysuria Musculoskeletal Musculoskeletal: Reports arthralgias; Denies back pain Integumentary Denies Abrasions or rash Neurologic Neurologic: Denies headache(s) or weakness Psychiatric Psychiatric: Denies anxiety or depression Endocrine Endocrinology: Denies polydipsia or polyuria Allergic/Immunologic Allergic/Immunologic ED: Denies urticaria EXAM Physical Exam Const Vital Signs: 03/01/21 12:48 Temperature 97.5 F L Temperature Source Temporal Pulse Rate 85 Respiratory Rate 16 Blood Pressure 123/69 H Blood Pressure Mean 87 Pulse Ox 97 Oxygen Delivery Method Room Air Positive well nourished and well developed General Appearance ED: well developed HEENT Reports normocephalic and head/scalp atraumatic Eyes PERRL and EOMs intact bilaterally Neck supple Chest Wall inspection of chest normal and palpation of chest normal Resp normal respiratory effort and clear to auscultation bilaterally Cardio regular rate and regular rhythm GI normal to inspection, nondistended, normoactive bowel sounds Palpation: soft Extremity normal to inspection Extremity Narrative: Mild tenderness over the anterior portion of the foot and on the medial malleolus. No significant edema. Strong distal pulses. Can wiggle toes. Has weakness and increased pain with dorsiflexion. Neuro oriented x3 and no sensory deficits noted Sensorium / Orientation: alert Motor Exam: strength 5/5 throughout Psych mental status grossly normal Skin no rashes or lesions noted MDM MDM MDM Narrative Medical decision making narrative: Patient was given naproxen on arrival. Radiography Diagnostic Testing: Radiology Impression Ankle X-Ray 03/01/21 13:15 IMPRESSION: Unremarkable x-ray examination of the right ankle. Electronically Signed: Leander Marin MD at 13:45 EDT Tel , Service support , Foot X-Ray 03/01/21 13:15 IMPRESSION: Unremarkable x-ray examination of the right foot. Electronically Signed: Leander Marin MD at 13:45 EDT Tel , Service support , Treatment and Re-Evaluation Comments:: X-rays per my interpretation reveal no acute fracture. Radiology interpretation is reviewed. Test results discussed with the patient. He is placed in Jovanni wrap and will be given crutches. He may ambulate and weight-bear as tolerated. Prescription for naproxen will be sent to the pharmacy for him. Discharge Plan Triage Chief Complaint: Lower Extremity Injury ED Provider: Cielo Aguilar Dx/Rx/DC Orders Clinical Impression: Ankle sprain Instructions: ED Ankle Sprain (Adult) Prescriptions: New naproxen [Naprosyn] 500 mg tablet 500 mg PO BID PRN (Reason: pain) Qty: 20 RF: 0 No Action paroxetine HCl 20 MG tablet 20 mg PO DAILY RF: 0 clindamycin HCl 300 MG capsule 300 mg PO Q6H Qty: 40 RF: 0 Stand Alone Forms: Work Status Form Primary Care Provider: Elisabet Philippe Referrals: [facility]GROUP OF PHYSICIANS] - 3-5 Days Elisabet Philippe [Primary Care Provider] - Disposition Disposition: Home, self care
[2021-03-01 15:19] VITALS: BP 111/95; PULSE 74; RESP 16; O2SAT 98
== END 2021-03-01 15:19 | disposition home or self-care (01) ==
PROVIDERS: Emergency Provider Emergency Medicine
DX: S93.401A Sprain of unspecified ligament of right ankle, initial encounter (principal); W18.09XA Striking against other object with subsequent fall, initial encounter; Y93.9 Activity, unspecified; Y92.9 Unspecified place or not applicable; F32.9 Major depressive disorder, single episode, unspecified; Z79.899 Other long term (current) drug therapy; F17.200 Nicotine dependence, unspecified, uncomplicated
CPT/HCPCS: 73610; 73630; 99284

== ENCOUNTER 2021-03-16 14:40 | Emergency (ER) | payer MEDICAID, SELFPAY ==
[2021-03-16 14:40] VITALS: BP 143/81; PULSE 89; RESP 16; TEMP 36.2; O2SAT 97; BMI 24.0
--- NOTE | 2021-03-16 14:46 | RAD_ITS ---
STUDY: X-RAY - LEFT HAND, ATTENTION INDEX FINGER REASON FOR EXAM: Male, 25 years old. Injury/Pain TECHNIQUE: 3 view(s) of the finger were obtained. COMPARISON: None. FINDINGS: Normal metacarpal head. Normal metacarpophalangeal joint. Normal proximal phalanx. Normal middle phalanx. Nondisplaced fracture of the tuft of the distal phalanx of the index finger. Normal proximal interphalangeal joint. Normal distal interphalangeal joint. Soft tissue swelling. RAD/Finger(s) Min 2 Views IMPRESSION: Nondisplaced fracture of the tuft of the distal phalanx of the index finger with overlying soft tissue swelling. Electronically Signed: Fermín Howe MD at 15:08 EDT , Service support ,
--- NOTE | 2021-03-16 14:47 | EX.ED.GENINJ ---
HPI History of Present Illness Chief Complaint: Upper Extremity Injury Informant: patient Onset/Context/Timing Onset: Hours Mechanism/Context: Blunt Injury and Work Related Location of pain/injuries: - (Left index finger) Quality of Pain: Dull, Aching and Throbbing Location: Distal phalanx left index finger Current Severity: Severe Maximum Severity: Severe Worsened by: Attempt at movement Relieved by: Nothing Associated Symptoms Associated Symptoms: Positive for Loss of function; Negative for Parasthesias and Weakness Narrative Narrative: Patient is a [id number] 25-year-old male presents with crush injury to his left index finger. He states he struck his index finger with a hammer. He states he is unable to move it. He denies paresthesia, anesthesia medics. Patient immunizations up-to-date. This occurred at work. [facility] Medical History Depression Home Medications NK 03/16/21 [History Last Taken Unknown] Allergy/AdvReac Type Severity Reaction Status Date / Time aspirin [ASA] Allergy Other Verified 03/16/21 14:42 Social History (Updated 03/16/21 @ 14:[address] Umesh Pabon MD) Smoking Status: Current every day smoker tobacco type: cigarettes alcohol intake: current alcohol intake frequency: other substance use type: does not use ROS ROS ED Musculoskeletal Musculoskeletal: Reports other Details: Distal left index fingerDistal left index finger ; Denies arthralgias, back pain, myalgias or neck pain Integumentary Reports other Details: Patient has a bruise noted on the dorsal and palmar surface of his left index finger ; Denies abscess, Abrasions or rash Neurologic Neurologic: Denies paresthesias or weakness Hematologic/Lymphatic Hematologic/Lymphatic: Denies easy bleeding or easy bruising EXAM Physical Exam Const Vital Signs: 03/16/21 14:40 Temperature 97.2 F L Temperature Source Temporal Pulse Rate 89 Respiratory Rate 16 Blood Pressure 143/81 H Blood Pressure Mean 101 Pulse Ox 97 Oxygen Delivery Method Room Air HEENT HEENT Narrative: Is normal. Nares patent. No asymmetry of the face. atraumatic Eyes PERRL and EOMs intact bilaterally Neck full ROM Resp normal respiratory effort Cardio regular rhythm Rate: regular rate Extremity Negative for normal to inspection or full ROM General Extremety ED: Yes tenderness; Negative for deformity or edema General Extremity: other findings Other Details: There is a contusion near the cuticle on the radial side of the left index finger dorsal surface. There is a 5% subungual hematoma. There is discoloration and swelling of the fat pad. Patient states he cannot move but he is able to flex and extend at the PIP and DIP joint. Unable to individually test the flexor digitorum superficialis or flexor digitorum profundus because patient complains of pain out of proportion to tactile stimulus. ; Negative for deformity or edema Neuro oriented x3 and CN's II-XII intact bilaterally Sensorium / Orientation: alert Psych mental status grossly normal Skin Skin Narrative: Previously described under the extremity exam Wounds: wounds noted MDM MDM MDM Narrative Medical decision making narrative: X-ray of the obtained to evaluate for distal phalanx fracture versus contusion with subungual hematoma. 3 views of the index finger were obtained. Patient has a nondisplaced tuft fracture. Patient was placed in aluminum splint and referred to [facility]. Radiography Diagnostic Testing: Radiology Impression Finger X-Ray 03/16/21 14:46 IMPRESSION: Nondisplaced fracture of the tuft of the distal phalanx of the index finger with overlying soft tissue swelling. Electronically Signed: Fermín Howe MD at 15:08 EDT , Service support , Discharge Plan Triage Chief Complaint: Upper Extremity Injury ED Provider: Umesh Pabon Dx/Rx/DC Orders Clinical Impression: Closed fracture of tuft of distal phalanx of finger, Subungual hematoma of finger of right hand Instructions: ED Fracture, Finger, Closed, ED Subungual Hematoma Prescriptions: No Action NK RF: 0 Primary Care Provider: Elisabet Philippe Referrals: Elisabet Philippe [Primary Care Provider] - Activity Restrictions/Additional Instructions: Wear splint until seen at [facility]. Keep splint clean and dry Apply ice 6-8 times a day Take Tylenol for your pain. Disposition Disposition: Home, self care
[2021-03-16 16:57] VITALS: RESP 19
== END 2021-03-16 16:58 | disposition home or self-care (01) ==
PROVIDERS: Emergency Provider Emergency Medicine
DX: S62.661A Nondisplaced fracture of distal phalanx of left index finger, initial encounter for closed fracture (principal); S60.122A Contusion of left index finger with damage to nail, initial encounter; W27.8XXA Contact with other nonpowered hand tool, initial encounter; Y93.9 Activity, unspecified; Y92.9 Unspecified place or not applicable; F32.9 Major depressive disorder, single episode, unspecified; F17.210 Nicotine dependence, cigarettes, uncomplicated
CPT/HCPCS: 73140; 99283

== ENCOUNTER 2021-06-16 00:48 | Emergency (ER) | payer MEDICAID, SELFPAY ==
[2021-06-16 00:50] VITALS: BP 149/87; PULSE 87; RESP 16; TEMP 36.3; O2SAT 96; BMI 25.0
--- NOTE | 2021-06-16 01:31 | RAD_ITS ---
STUDY: X-RAY - LEFT HAND, ATTENTION SECOND FINGER REASON FOR EXAM: Male, 25 years old. Pain after trauma TECHNIQUE: view(s) of the finger were obtained. COMPARISON: None. FINDINGS: Please see the impression. RAD/Finger(s) Min 2 Views IMPRESSION: No acute fracture or dislocation in the left hand second digit. No radiopaque foreign body. Electronically Signed: Grzegorz Hurley MD at 2:54 EDT Tel , Service support ,
--- NOTE | 2021-06-16 01:43 | EX.ED.UPPERE ---
HPI History of Present Illness HPI Narrative: Patient presents with left index fingertip pain. He is right-hand dominant. He states he broke his left index fingertip with a hammer about 8 months ago. It was doing well. Tonight he tried to swat a cat off of a table and accidentally hit the table. He has a small subungual hematoma that is not expanding. He is concerned he broke it again. No other injury. Pressing it makes it worse and not touching it makes it better. Chief Complaint: Upper Extremity Injury Informant: patient [facility] Medical History Depression Home Medications NK 03/16/21 [History Last Taken Unknown] Allergy/AdvReac Type Severity Reaction Status Date / Time aspirin [ASA] Allergy Other Verified 06/16/21 00:49 Social History Smoking Status: Current every day smoker tobacco type: cigarettes alcohol intake: current alcohol intake frequency: other substance use type: does not use ROS ROS ED Musculoskeletal Musculoskeletal: Reports other Details: See history of present illness ; Denies back pain Integumentary Denies abscess, Abrasions or rash Neurologic Neurologic: Denies paresthesias or weakness Hematologic/Lymphatic Hematologic/Lymphatic: Denies easy bleeding or easy bruising EXAM Physical Exam Const Vital Signs: 06/16/21 00:50 Temperature 97.3 F L Temperature Source Temporal Pulse Rate 87 Respiratory Rate 16 Blood Pressure 149/87 H Blood Pressure Mean 107 Pulse Ox 96 Oxygen Delivery Method Room Air Positive well nourished and well developed General Appearance ED: well developed and NAD HEENT normocephalic and atraumatic Resp normal respiratory effort Extremity Extremity Narrative: There is a very small approximately 20% subungual hematoma on the lateral aspect of the nail of his left index finger. There is no deformity. Range of motion is intact. Extensor tendon as well as superficial and deep flexor tendons all function. Neuro Sensorium / Orientation: alert Psych mental status grossly normal Skin Lesions: no lesions Rashes: no rashes MDM MDM MDM Narrative Medical decision making narrative: Three-view x-ray of his finger looked at by me shows what appears to be a small distal tuft fracture. However, when I look at his old films from March, this looks to be in the exact same spot. My suspicion is is still in the process of healing. Even if this was acute, there is no acute treatment. We will place him in a fingertip splint. The subungual hematoma is not growing and is quite small. I do not think it is really needed to drain. He will take Tylenol or Motrin. Discharge Plan Triage Chief Complaint: Upper Extremity Injury ED Provider: Devonte Jose Dx/Rx/DC Orders Clinical Impression: Closed fracture of tuft of distal phalanx of finger Instructions: ED Fracture, Finger, Closed Prescriptions: No Action NK RF: 0 Primary Care Provider: Stephanie Velasquez Referrals: Stephanie Velasquez, HEALTH AND WELLNESS ADVISOR-C [Primary Care Provider] - As Needed Disposition Disposition: Home, Self Care
[2021-06-16 02:39] VITALS: RESP 16
== END 2021-06-16 02:39 | disposition home or self-care (01) ==
PROVIDERS: Emergency Provider Emergency Medicine; PCP Nurse Practitioner Adult Health
DX: S62.631A Displaced fracture of distal phalanx of left index finger, initial encounter for closed fracture (principal); W22.03XA Walked into furniture, initial encounter; Y93.9 Activity, unspecified; Y92.9 Unspecified place or not applicable; F17.210 Nicotine dependence, cigarettes, uncomplicated
CPT/HCPCS: 73140; 99283

== ENCOUNTER 2021-09-13 19:15 | Emergency (ER) | payer MEDICAID, SELFPAY ==
[2021-09-13 19:16] VITALS: BP 118/74; PULSE 102; RESP 16; TEMP 36.2; O2SAT 96; BMI 20.2
--- NOTE | 2021-09-13 19:25 | RAD_ITS ---
STUDY: X-RAY - RIGHT FOOT CLINICAL: Male, 26 years old. patient complains of foot pain, no injury that he knows of TECHNIQUE: 3 view(s) of the foot. COMPARISON: MARCH 01, 2021 FINDINGS: Normal talus, calcaneus, and tarsal bones. Normal visualized subtalar, talonavicular, calcaneocuboid, tarsal and tarsometatarsal articulations. Normal metatarsi. Normal metatarsophalangeal joint of the great toe. Normal tibial and fibular sesamoid bones. Normal interphalangeal joint of the great toe. Normal phalanges of the great toe. Normal second through fifth metatarsophalangeal joints. Normal interphalangeal joints and phalanges of the lesser toes. The soft tissue structures are unremarkable. There is no demonstrated fracture. RAD/Foot min 3 Views IMPRESSION: Normal x-ray examination of the foot. Electronically Signed: Baldemar Yip MD at 19:52 EST , Service support ,
--- NOTE | 2021-09-13 20:57 | ED.VIS.LOWEX ---
HPI History of Present Illness Chief Complaint: Lower Extremity Injury Narrative Narrative: 26-year-old male presenting with nontraumatic right great toe pain. States it started yesterday. He states I broke my toe and I do not know how. Patient states he does walk a lot. He denies stubbing his toe or dropping anything on his foot. He denies hyperextension. He does not have any numbness or tingling. He states it hurts to walk on it. He took Tylenol yesterday for pain. [facility], [facility] Medical History Depression Home Medications ibuprofen 600 mg PO Q6H PRN PRN #20 tablet 09/13/21 [Rx Last Taken Unknown] Allergy/AdvReac Type Severity Reaction Status Date / Time aspirin [ASA] Allergy Other Verified 09/13/21 19:16 Social History Smoking Status: Current every day smoker tobacco type: cigarettes alcohol intake: current alcohol intake frequency: other substance use type: does not use ROS ROS ED Constitutional Constitutional ED: Denies chills, fever(s) or sweats Eyes Eyes: Denies blurry vision or change in vision ENT ENT ED: Denies ear pain or sore throat Cardiovascular Cardiovascular: Denies chest pain, palpitations or racing heartbeat Respiratory/Chest Respiratory/Chest: Denies cough, dyspnea or sputum Gastrointestinal Gastrointestinal: Denies abdominal pain, constipation, diarrhea, nausea or vomiting Genitourinary Genitourinary ED: Denies dysuria, hematuria or urinary frequency Musculoskeletal Musculoskeletal: Reports other Details: Right great toe pain ; Denies arthralgias, myalgias or neck pain Integumentary Denies abscess, Abrasions or rash Neurologic Neurologic: Denies headache(s), paresthesias or weakness Psychiatric Psychiatric: Denies anxiety, depression, suicidal ideation or suicidal thoughts Endocrine Endocrinology: Denies polydipsia or polyuria EXAM Physical Exam Const Vital Signs: 09/13/21 19:16 Temperature 97.2 F L Temperature Source Temporal Pulse Rate 102 H Respiratory Rate 16 Blood Pressure 118/74 Blood Pressure Mean 88 Pulse Ox 96 Oxygen Delivery Method Room Air Positive well nourished General Appearance ED: NAD HEENT normocephalic and atraumatic Eyes PERRL Resp normal respiratory effort Cardio regular rate and regular rhythm Extremity Extremity Narrative: Tenderness to palpation over the dorsal surface of the right great toe and in the proximal medial dorsal midfoot.. There is no discoloration, ecchymosis, swelling. Right foot is neurovascular intact brisk cap refill to all 5 toes. Neuro oriented x3 Sensorium / Orientation: alert Psych mental status grossly normal Skin Lesions: no lesions Rashes: no rashes MDM MDM MDM Narrative Medical decision making narrative: 26-year-old male presenting with nontraumatic right great toe pain. He took Tylenol yesterday without relief. Obtain an x-ray of the right foot and on my interpretation there is no acute fracture or subluxation. This is consistent with examination which shows no abnormalities other than pain over the dorsal aspect of the right great toe. It does not appear to be podagra. Patient is otherwise young and healthy. Since his x-rays negative I counseled him to use ice and ibuprofen as well as elevate the right foot. Impression: 1. Right great toe pain Radiography Diagnostic Testing: Clinical Impression(s) from Imaging Studies Foot X-Ray 09/13/21 19:25 IMPRESSION: Normal x-ray examination of the foot. Electronically Signed: Baldemar Yip MD at 19:52 EST , Service support , Discharge Plan Triage Chief Complaint: Lower Extremity Injury ED Provider: Efren Pillai Dx/Rx/DC Orders Instructions: ED Toe Sprain Prescriptions: New ibuprofen 600 mg tablet 600 mg PO Q6H PRN PRN (Reason: pain) Qty: 20 RF: 0 Primary Care Provider: Stephanie Velasquez Referrals: Stephanie Velasquez, [employer] [Primary Care Provider] - Disposition Disposition: Home, Self Care
[2021-09-13 21:14] VITALS: BP 118/83; PULSE 91; RESP 15; O2SAT 97
== END 2021-09-13 21:16 | disposition home or self-care (01) ==
PROVIDERS: Emergency Provider Student in an Organized Health Care Education/Training Program; PCP Nurse Practitioner Adult Health
DX: M79.674 Pain in right toe(s) (principal); F17.210 Nicotine dependence, cigarettes, uncomplicated
CPT/HCPCS: 73630; 99282

== ENCOUNTER 2022-01-06 21:26 | Emergency (ER) | payer MEDICAID, SELFPAY ==
[2022-01-06 21:27] VITALS: BP 125/77; PULSE 97; RESP 15; TEMP 35.8; O2SAT 97; BMI 24.1
--- NOTE | 2022-01-06 21:31 | EX.ED.UPPERE ---
HPI History of Present Illness Chief Complaint: Upper Extremity Injury Detail of Chief Complaint: Injury left wrist status post fall yesterday Informant: patient Occured/Mechanism Mechanism/Context: Yes same level fall Onset/Context/Timing Onset: Yesterday Context: Sudden Onset Timing: Continuous Quality of Pain: Dull and Aching Location: Left wrist Current Severity: Mild Maximum Severity: Moderate Worsened by: Movement Relieved by: Nothing Associated Symptoms Associated Symptoms: Positive for Loss of Funtion (Due to pain) Narrative Tetanus Immunization: <5 years Prior similar symptoms: No Recent Illness/Hospitalization: No PFSH PFSH Medical History Anxiety Bipolar disorder Depression Smoker Home Medications ibuprofen 600 mg PO Q6H PRN PRN #20 tablet 09/13/21 [Rx Last Taken Unknown] quetiapine 50 mg PO BID 01/06/22 [History Last Taken Unknown] Allergy/AdvReac Type Severity Reaction Status Date / Time aspirin [ASA] Allergy Other Verified 01/06/22 21:32 Surgical History no surgical history Social History (Updated 01/06/22 @ 21:[address] Umesh Pabon MD) household members: significant other Smoking Status: Current every day smoker tobacco type: cigarettes alcohol intake: current alcohol intake frequency: other substance use type: does not use ROS ROS ED Musculoskeletal Musculoskeletal: Reports other Details: Per HPI ; Denies back pain, myalgias or neck pain Neurologic Neurologic: Denies paresthesias or weakness Hematologic/Lymphatic Hematologic/Lymphatic: Denies easy bleeding or easy bruising EXAM Physical Exam Const Positive well nourished and well developed General Appearance ED: well developed; Negative for cyanotic, diaphoretic or NAD HEENT normocephalic and atraumatic Eyes PERRL and EOMs intact bilaterally Resp normal respiratory effort Cardio regular rate and regular rhythm Extremity Left Upper Extremity: wrist inspection (Sites were), palpation (Pain ovation of the distal radius and ulna), ROM (Limited motion), neurovascular exam (Radial pulse palpable. Cap refill is normal. Median, radial, ulnar nerve function intact.) and other (There is no pain the patient over the metacarpal bones or phalanges.) Psych mental status grossly normal Skin Lesions: no lesions Rashes: no rashes Trauma: no lacerations or abrasions MDM MDM MDM Narrative Medical decision making narrative: X-ray was obtained to rule out fracture versus contusion/strain. He received 1 hydrocodone tablet in the emergency department. Radiography Diagnostic Testing: Three-view x-rays of the wrist were interpreted independently by me as negative. There is no soft tissue swelling, fracture, subluxation or dislocation. There is no volar fat pad. Patient was informed of the results. Discharge Plan Triage Chief Complaint: Upper Extremity Injury ED Provider: Umesh Pabon Dx/Rx/DC Orders Clinical Impression: Contusion of left wrist, initial encounter, Injury due to fall Instructions: ED Contusion, Upper Extremity Prescriptions: No Action ibuprofen 600 mg tablet 600 mg PO Q6H PRN PRN (Reason: pain) Qty: 20 RF: 0 quetiapine 50 mg tablet 50 mg PO BID RF: 0 Primary Care Provider: [facility] Elisabet Joaquin Referrals: [facility] Elisabet Joaquin [Primary Care Provider] - 1 Week if not improving Activity Restrictions/Additional Instructions: Apply ice 6 to times to 8 times a day Take ibuprofen for pain prescription strength is 4 [id number] tablets every 8 hours. You may take this for 3 to 5 days as needed. Disposition Disposition: Home, Self Care Discharge Date/Time: 01/06/22 22:11
--- NOTE | 2022-01-06 21:50 | RAD_ITS ---
HISTORY: Injury/Pain COMPARISON: Hand radiograph on same day FINDINGS: # of images incl. paperwork: 3 XR Wrist Min 3 Views: SOFT TISSUES: Mild dorsal wrist edema. No radiodense soft tissue foreign body. No abnormal soft tissue mineralization. OSSEOUS: No fracture. No erosion or periostitis. JOINT: No dislocation. No significant osseous proliferation. Joint spacing is preserved. BONE MINERALIZATION: Unremarkable. RAD/Wrist min 3 Views IMPRESSION: Mild dorsal wrist edema. No acute osseous finding. at 2210 Reported and signed by: Thom Gastelum MD Electronically Signed: Thom Gastelum MD at 22:09 EDT ,
[2022-01-06] MEDS: Acetaminophen 325 MG Tablet 650 MG PO (22:08)
== END 2022-01-06 22:11 | disposition home or self-care (01) ==
PROVIDERS: Emergency Provider Emergency Medicine; Visit Provider Emergency Medicine
DX: S60.212A Contusion of left wrist, initial encounter (principal); F31.9 Bipolar disorder, unspecified; W18.30XA Fall on same level, unspecified, initial encounter; F17.210 Nicotine dependence, cigarettes, uncomplicated; Y93.9 Activity, unspecified; Y92.9 Unspecified place or not applicable; F41.9 Anxiety disorder, unspecified; Z79.899 Other long term (current) drug therapy
CPT/HCPCS: 73110; 99282

== ENCOUNTER 2022-05-10 21:01 | Emergency (ER) | payer MEDICAID, SELFPAY ==
[2022-05-10 21:01] VITALS: BP 114/65; PULSE 88; RESP 18; TEMP 36.8; O2SAT 99; BMI 18.1
--- NOTE | 2022-05-10 21:12 | RAD_ITS ---
STUDY: X-RAY - RIGHT FOOT CLINICAL: Male, 26 years old. Injury/Pain TECHNIQUE: 3 view(s) of the foot. COMPARISON: None. FINDINGS: Normal talus, calcaneus, and tarsal bones. Normal visualized subtalar, talonavicular, calcaneocuboid, tarsal and tarsometatarsal articulations. Normal metatarsi. Normal metatarsophalangeal joint of the great toe. Normal tibial and fibular sesamoid bones. Normal interphalangeal joint of the great toe. Normal phalanges of the great toe. Normal second through fifth metatarsophalangeal joints. Normal interphalangeal joints and phalanges of the lesser toes. The soft tissue structures are unremarkable. RAD/Foot min 3 Views IMPRESSION: Normal x-ray examination of the foot. Electronically Signed: Gelacio Hudson DO at 21:56 EDT ,
--- NOTE | 2022-05-10 21:15 | RAD_ITS ---
STUDY: X-RAY - RIGHT ANKLE REASON FOR EXAM: Male, 26 years old. Injury/Pain TECHNIQUE: 3 view(s) of the ankle. COMPARISON: None. FINDINGS: Normal visualized distal tibia and fibula. Normal medial and lateral malleoli. Normal tibiotalar articulation and ankle mortise. Normal visualized talus and calcaneus. The visualized subtalar, talonavicular, calcaneocuboid and tarsal articulations are normal. The soft tissue structures are unremarkable. RAD/Ankle min 3 Views IMPRESSION: Normal x-ray examination of the ankle. Electronically Signed: Gelacio Hudson DO at 21:54 EDT ,
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
--- NOTE | 2022-05-10 21:51 | ED.RN ---
PT LWBS BY RN. LEFT PRIOR TO RECEIVING DC INSTRUCTIONS.
== END 2022-05-10 21:52 | disposition home or self-care (01) ==
PROVIDERS: Emergency Provider Emergency Medicine; Visit Provider Emergency Medicine
DX: S93.401A Sprain of unspecified ligament of right ankle, initial encounter (principal); F17.210 Nicotine dependence, cigarettes, uncomplicated; X58.XXXA Exposure to other specified factors, initial encounter; S93.601A Unspecified sprain of right foot, initial encounter
CPT/HCPCS: 73610; 73630; 99282

== ENCOUNTER 2022-09-03 04:50 | Emergency (ER) | payer MEDICAID, SELFPAY ==
[2022-09-03 04:51] VITALS: BP 140/95; PULSE 95; RESP 15; TEMP 35.8; O2SAT 99; BMI 23.4
--- NOTE | 2022-09-03 04:59 | EDS_ITS ---
HPI History of Present Illness Chief Complaint: Other, Pain/Inj Informant: patient Narrative Narrative: Patient states he lifted a heavy item at work. This was approximately 250 pounds. He had some soreness in his lumbar area. But he states it just seems to be getting tighter. He has no numbness tingling weakness or spread to his legs. He stated he is afraid he hurt his back and ribs but when he shows me the area of pain is actually all lumbar. None of it goes up into the chest wall. No shortness of breath or pain with breathing. No bowel or bladder dysfunction. No trouble walking. He has had mild strains of his back before but never really hurt it. He has never had surgery or therapy. No other injuries. It feels better if he stays still and is worse with some twisting or motion. PFSH PFSH Medical History Anxiety Bipolar disorder Depression Smoker Home Medications quetiapine 50 mg tablet 50 mg PO BID 01/06/22 [History Last Taken Unknown] cyclobenzaprine 10 mg tablet 10 mg PO BID PRN muscle spasm #10 tabs 09/03/22 [Rx Last Taken Unknown] escitalopram oxalate 10 mg tablet 10 mg PO DAILY 09/03/22 [History Last Taken U nknown] naproxen 500 mg tablet 500 mg PO BID #14 tabs 09/03/22 [Rx Last Taken Unknown] Allergy/AdvReac Type Severity Reaction Status Date / Time aspirin [ASA] Allergy Other Verified 05/10/22 21:03 Social History household members: significant other Smoking Status: Current every day smoker tobacco type: cigarettes alcohol intake: current alcohol intake frequency: other substance use type: does not use ROS ROS ED Constitutional Constitutional ED: Denies fever(s) Cardiovascular Cardiovascular: Denies chest pain, palpitations or racing heartbeat Respiratory/Chest Respiratory/Chest: Denies cough or dyspnea Gastrointestinal Gastrointestinal: Denies abdominal pain, nausea or vomiting Genitourinary Genitourinary ED: Denies dysuria, hematuria or urinary frequency Musculoskeletal Musculoskeletal: Reports back pain Integumentary Denies rash Neurologic Neurologic: Denies headache(s), paresthesias or weakness Hematologic/Lymphatic Hematologic/Lymphatic: Denies easy bleeding or easy bruising Allergic/Immunologic Allergic/Immunologic ED: Denies urticaria EXAM Physical Exam Const Vital Signs: 09/03/22 04:51 09/03/22 04:57 Temperature 96.5 F L Temperature Source Temporal Pulse Rate 95 Respiratory Rate 15 Respiratory Effort Normal Respiratory Pattern Normal Blood Pressure 140/95 H Blood Pressure Mean 110 Pulse Ox 99 Oxygen Delivery Method Room Air Positive well nourished and well developed General Appearance ED: well developed and NAD HEENT atraumatic Eyes EOMs intact bilaterally Resp normal respiratory effort and clear to auscultation bilaterally Resp Narrative: No pain with a deep breath. Cardio regular rhythm Rate: regular rate GI normal to inspection, nondistended, normoactive bowel sounds and non-tender GI Narrative: Bowel sounds are normal. No distention. Back/Spine normal to inspection Back/Spine Narrative: Back normal. He has some mild paraspinal tenderness really throughout the lumbar area. This does not extend up into the back. There is no subcutaneous air. There is no skin changes. Extremity normal to inspection and full ROM Neuro Neuro Narrative: Normal gait and coordination. Normal reflexes. Motor Exam: strength 5/5 throughout Deep Tendon Reflexes: Rt Patellar (L4): 2+, Lt Patellar (L4): 2+, Rt Ankle (S1): 1+ and Lt Ankle (S1): 1+ Deep Tendon Reflexes Back: Rt Patellar (L4): 2+, Lt Patellar (L4): 2+, Rt Ankle (S1): 1+ and Lt Ankle (S1): 1+ Psych mental status grossly normal Skin no rashes or lesions noted and no wounds MDM MDM MDM Narrative Medical decision making narrative: Patient has bilateral lumbar paraspinal soreness and mild tenderness. I do not think this is a fracture. He did not have the sudden onset of pain. After lifting the heavy weight, he had some mild discomfort but he feels his back is just gotten tighter over the last hour or 2. He has no neurologic symptoms or findings. No bowel or bladder dysfunction. I do not think he needs x-rays. I will get him started on nonsteroidals and muscle relaxants. I will give him a few days of light duty. We discussed using ice and rest. We also discussed trying to avoid heat in the first at least few days as this can sometimes increa se spasm. Patient reports an allergy to aspirin. He has swelling of his eyes. He has used Motrin and Aleve [id number] without any symptoms before though. He should return with numbness tingling weakness bowel or bladder dysfunction or worsening pain or other concerns. Discharge Plan Triage Chief Complaint: Other, Pain/Inj ED Provider: Devonte Jose Dx/Rx/DC Orders Clinical Impression: Acute lumbosacral myofascial strain Instructions: ED Back Sprain/Strain Prescriptions: New cyclobenzaprine 10 mg tablet 10 mg PO BID PRN (Reason: muscle spasm) Qty: 10 0RF naproxen 500 mg tablet 500 mg PO BID Qty: 14 0RF No Action quetiapine 50 mg tablet 50 mg PO BID Label Comments: TAKE 1 TABLET DAILY at your bedtime escitalopram oxalate 10 mg tablet 10 mg PO DAILY Label Comments: TAKE 1 TABLET BY MOUTH DAILY Stand Alone Forms: Work Status Form Primary Care Provider: [facility] Elisabet Joaquin Referrals: [facility] Emani,Elisabet Philippe [Primary Care Provider] - 3-5 Days if not improving Disposition Disposition: Home, Self Care
[2022-09-03 05:05] VITALS: BP 140/95; PULSE 95; RESP 15; O2SAT 99
[2022-09-03] MEDS: cycloBENZAPRine HCl 10 MG Tablet PO (05:15)
--- NOTE | 2022-09-03 05:16 | ED.RN ---
informed by patient that he changed his mind and does not want to claim his injury as workers comp
== END 2022-09-03 05:25 | disposition home or self-care (01) ==
LOC: ED 05:14
PROVIDERS: Emergency Provider Emergency Medicine; Visit Provider Emergency Medicine
DX: S39.012A Strain of muscle, fascia and tendon of lower back, initial encounter (principal); F17.210 Nicotine dependence, cigarettes, uncomplicated; X50.0XXA Overexertion from strenuous movement or load, initial encounter
CPT/HCPCS: 99283

== ENCOUNTER 2022-11-06 02:16 | Emergency (ER) | payer MEDICAID, SELFPAY ==
[2022-11-06 02:16] VITALS: BP 152/92; PULSE 102; RESP 18; TEMP 36.2; O2SAT 99; BMI 23.8
--- NOTE | 2022-11-06 02:48 | RAD_ITS ---
EXAM: XR LEFT FINGERS, 2 OR MORE VIEWS CLINICAL INDICATION: Injury/Pain -- index finger TECHNIQUE: Frontal, lateral and oblique views of the fingers of the left hand. This report was created using [employer] report generation technology. COMPARISON: None. FINDINGS: BONES/JOINTS: Unremarkable. No sclerotic or destructive changes observed. No fracture or dislocation identified. SOFT TISSUES: Mild soft tissue swelling of the distal index finger at the level of the DIP joint. No radiopaque foreign body. RAD/Finger(s) Min 2 Views IMPRESSION: Mild soft tissue swelling. No visible underlying fracture or joint asymmetry. Electronically Signed: Jami Hannah MD at 3:19 EST ,
[2022-11-06] MEDS: Acetaminophen 325 MG Tablet 650 MG PO (03:15)
--- NOTE | 2022-11-06 04:09 | EDS_ITS ---
HPI History of Present Illness Chief Complaint: Upper Extremity Injury Informant: patient Narrative Narrative: Patient is a 27-year-old male with history of bipolar disorder and anxiety as well as prior tuft fracture of the left index finger presenting with left index finger injury. He is left-hand dominant. He states his uncle accidentally smashed his index finger in door. He is concerned that he might of broke his finger again. He has associated paresthesias of his finger and has a hard time moving it. Has no other complaints at this time. No other injuries reported. PFSH PFSH Medical History Anxiety Bipolar disorder Depression Smoker Home Medications quetiapine 50 mg tablet 50 mg PO BID 01/06/22 [History Last Taken Unknown] cyclobenzaprine 10 mg tablet 10 mg PO BID PRN muscle spasm #10 tabs 09/03/22 [Rx Last Taken Unknown] escitalopram oxalate 10 mg tablet 10 mg PO DAILY 09/03/22 [History Last Taken Unknown] Allergy/AdvReac Type Severity Reaction Status Date / Time aspirin [ASA] Allergy Other Verified 05/10/22 21:03 Social History household members: significant other Smoking Status: Current every day smoker tobacco type: cigarettes alcohol intake: current alcohol intake frequency: other substance use type: does not use ROS ROS ED Constitutional Constitutional ED: Denies chills or fever(s) Cardiovascular Cardiovascular: Denies chest pain Respiratory/Chest Respiratory/Chest: Denies cough Gastrointestinal Gastrointestinal: Denies nausea or vomiting Musculoskeletal Musculoskeletal: Reports other Details: Left index finger pain Integumentary Denies Abrasions or rash Neurologic Neurologic: Reports paresthesias; Denies weakness Psychiatric Psychiatric: Reports anxiety Hematologic/Lymphatic Hematologic/Lymphatic: Denies easy bleeding or easy bruising EXAM Physical Exam Const Vital Signs: 11/06/22 02:16 Temperature 97.1 F L Temperature Source Temporal Pulse Rate 102 H Respiratory Rate 18 Blood Pressure 152/92 H Blood Pressure Mean 112 Pulse Ox 99 Oxygen Delivery Method Room Air Positive well nourished and well developed General Appearance ED: well developed and NAD HEENT normocephalic and atraumatic Eyes PERRL Neck supple Chest Wall inspection of chest normal Resp normal respiratory effort Cardio Cardio Narrative: Brisk capillary refill. 2+ radial pulses Extremity normal to inspection Extremity Narrative: Patient points to his left index finger distal phalanges as his area of pain. No deformity of the finger appreciated. Specifically there is no mallet finger swan-neck deformity. Initially he states he cannot bend it but actively resist when I try to flex his finger and holds it in extension. With distraction I am able to flex both interphalangeal joints and his MCP. He does have some mild pain with range of motion of the DIP. No significant edema appreciated. No subungual hematoma or laceration appreciated. Neuro oriented x3, moves all extremities and no focal motor deficits Sensorium / Orientation: alert Skin Lesions: no lesions Trauma: no lacerations or abrasions MDM MDM MDM Narrative Medical decision making narrative: Patient is evaluated for injury of his left index finger. X-ray obtained of the finger and interpreted by myself as well as radiology. There is mild soft tissue swelling with no associated fracture or joint abnormality. Patient is given dose of Tylenol in the ER. Is counseled on contusion care. Encouraged to take Tylenol as needed for pain. Given return precautions to the ER. At this time I do not suspect a tendon injury, tuft fracture or occult fracture. Radiography Diagnostic Testing: Clinical Impression(s) from Imaging Studies Finger X-Ray 11/06/22 02:48 IMPRESSION: Mild soft tissue swelling. No visible underlying fracture or joint asymmetry. Electronically Signed: Jami Hannah MD at 3:19 EST , Discharge Plan Triage Chief Complaint: Upper Extremity Injury ED Provider: Angelica Colon Dx/Rx/DC Orders Clinical Impression: Contusion of left index finger Instructions: ED Crush Injury, Hand Prescriptions: No Action quetiapine 50 mg tablet 50 mg PO BID Label Comments: TAKE 1 TABLET DAILY at your bedtime escitalopram oxalate 10 mg tablet 10 mg PO DAILY Label Comments: TAKE 1 TABLET BY MOUTH DAILY cyclobenzaprine 10 mg tablet 10 mg PO BID PRN (Reason: muscle spasm) Qty: 10 0RF Primary Care Provider: [facility] Elisabet Joaquin Referrals: [facility] Elisabet Joaquin [Primary Care Provider] - Activity Restrictions/Additional Instructions: Ice your finger and take Tylenol for pain. There is no broken bone, fracture or dislocation on your x-ray today. Disposition Disposition: Home, Self Care
== END 2022-11-06 04:17 | disposition home or self-care (01) ==
PROVIDERS: Emergency Provider Emergency Medicine; Visit Provider Emergency Medicine
DX: S60.022A Contusion of left index finger without damage to nail, initial encounter (principal); F31.9 Bipolar disorder, unspecified; F17.210 Nicotine dependence, cigarettes, uncomplicated; F41.9 Anxiety disorder, unspecified; W23.0XXA Caught, crushed, jammed, or pinched between moving objects, initial encounter; Z79.899 Other long term (current) drug therapy
CPT/HCPCS: 73140; 99283

== ENCOUNTER 2022-11-15 02:31 | Emergency (ER) | payer MEDICAID, SELFPAY ==
[2022-11-15 02:32] VITALS: BP 147/91; PULSE 98; RESP 18; TEMP 36.4; O2SAT 99; BMI 24.0
--- NOTE | 2022-11-15 02:37 | ED.VIS.LOWEX ---
HPI History of Present Illness Chief Complaint: Lower Extremity Injury Detail of Chief Complaint: Right ankle pain for 2 to 3 weeks Informant: patient Occured/Mechanism Comment: No known injury. Onset/Context/Timing Onset: Weeks Timing: Intermittent and Waxes and wanes Quality of Pain: Dull Location: Lateral right ankle Current Severity: Mild Maximum Severity: Moderate Worsened by: Certain movements Relieved by: Rest Associated Symptoms Associated Symptoms: Negative for Parasthesia, Weakness or Loss of Funtion Narrative Narrative: Patient is a 27-year-old male with history of bipolar affective disorder, sprained ankles, who presents because of right ankle pain for the past 2 to 3 weeks. He is homeless. He does admit to smoking. He does admit to occasional alcohol use. 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 He denies fever, chills night sweats. He denies HEENT, cardiac, respiratory or GI symptoms. Tetanus Immunization: 5-10 years Prior similar symptoms: Yes Recent Illness/Hospitalization: No PFSH PFSH Medical History Anxiety Bipolar disorder Depression Smoker Home Medications quetiapine 50 mg tablet 250 mg PO BID 01/06/22 [History Last Taken Unknown] escitalopram oxalate 10 mg tablet 20 mg PO DAILY 09/03/22 [History Last Taken Unknown] Allergy/AdvReac Type Severity Reaction Status Date / Time aspirin [ASA] Allergy Other Verified 11/15/22 02:36 Social History (Updated 11/15/22 @ 02:[address] Umesh Pabon MD) household members: significant other housing: homeless Smoking Status: Current every day smoker tobacco type: cigarettes alcohol intake: current alcohol intake frequency: other substance use type: does not use ROS ROS ED Constitutional Constitutional ED: Denies chills, fever(s), subjective, sweats or weight loss Gastrointestinal Gastrointestinal: Denies nausea or vomiting Musculoskeletal Musculoskeletal: Reports other Details: Right ankle pain ; Denies arthralgias, back pain, myalgias or neck pain Integumentary Denies rash Neurologic Neurologic: Denies paresthesias or weakness Hematologic/Lymphatic Hematologic/Lymphatic: Denies easy bleeding or easy bruising EXAM Physical Exam Const Vital Signs: 11/15/22 02:32 Temperature 97.5 F L Temperature Source Temporal Pulse Rate 98 Respiratory Rate 18 Blood Pressure 147/91 H Blood Pressure Mean 109 Pulse Ox 99 Positive well nourished, well developed and unkempt General Appearance ED: unkempt, well developed and NAD HEENT Reports moist mucous membranes normocephalic and atraumatic Eyes Eyes Narrative: Pupils equal round reactive. Extraocular muscles are intact. Sclera is anicteric. Conjunctive is pink. Neck full ROM and supple Resp normal respiratory effort, no retractions and clear to auscultation bilaterally Cardio regular rate, regular rhythm, S1 normal heart sound, S2 normal heart sound and no murmurs Back/Spine no CVA tenderness Extremity full ROM; Negative for normal to inspection Extremity Narrative: There is pain palpation over the right anterior talofibular ligament. There is no pain the patient over the posterior lateral malleolus or over the medial malleolus. There is no lax with drawer testing. DP and PT pulse are palpable. Patient has delayed cap refills of his toes right and left foot. There is discoloration consistent with frostnip. There is no blistering. There is no evidence of dry gangrene. Cap refill is slightly delayed. General Extremety ED: Negative for cyanosis or edema General Extremity: Negative for cyanosis or edema Neuro oriented x3, CN's II-XII intact bilaterally and moves all extremities Psych mental status grossly normal Appearance: unkempt Skin no wounds MDM MDM MDM Narrative Medical decision making narrative: Based on the [place] ankle rule imaging is not indicated. Patient has a stable first-degree ankle sprain, anterior talofibular ligament. Since he has allergy to aspirin with angioedema he was treated with Tylenol for his pain. We will have nursing staff warm up his extremities since he has evidence of changes due to cold exposure, frostnip. Mr. Daily was kept in the emergency room because he is homeless and cold temperature and concern for frostbite. Plan is to discharge in the morning. Time of entry 0426 Patient was observed until 0600. His toes have returned to normal color. Plan is to discharge to home with appropriate home-going instructions and will have case management follow-up. Discharge Plan Triage Chief Complaint: Lower Extremity Injury ED Provider: Umesh Pabon Dx/Rx/DC Orders Clinical Impression: Sprain of anterior talofibular ligament of right ankle, Frostnip, Hx of bipolar disorder, Tobacco use Instructions: ED Frostnip, ED Ankle Sprain (Adult) Prescriptions: No Action quetiapine 50 mg tablet 250 mg PO BID Label Comments: TAKE 1 TABLET DAILY at your bedtime escitalopram oxalate 10 mg tablet 20 mg PO DAILY Label Comments: TAKE 1 TABLET BY MOUTH DAILY [facility]errals: [facility] [Primary [facility] Provider] - 3-5 Days Disposition Disposition: Home, Self Care
[2022-11-15] MEDS: Acetaminophen 325 MG Tablet 650 MG PO (02:41)
--- NOTE | 2022-11-15 10:26 | CM.ED ---
MAXIMUS Note MAXIMUS received consult regarding patient that he is living on the [address]. [employer] called and left voice mail for patient to call this field underwriter. Morena GARCIA
--- NOTE | 2022-11-15 18:39 | CM.ED ---
SW Note SW called patient's listed cell phone and left voice mail message for him to call this screen writer. Morena GARCIA
== END 2022-11-15 06:17 | disposition home or self-care (01) ==
LOC: ED 02:46
PROVIDERS: Emergency Provider Emergency Medicine; Visit Provider Emergency Medicine
DX: S93.431A Sprain of tibiofibular ligament of right ankle, initial encounter (principal); F15.21 Other stimulant dependence, in remission; F31.9 Bipolar disorder, unspecified; I61.2 Nontraumatic intracerebral hemorrhage in hemisphere, unspecified; Z79.4 Long term (current) use of insulin; Z59.00 Homelessness unspecified; F17.210 Nicotine dependence, cigarettes, uncomplicated; X31.XXXA Exposure to excessive natural cold, initial encounter; F41.9 Anxiety disorder, unspecified; L81.9 Disorder of pigmentation, unspecified; K21.9 Gastro-esophageal reflux disease without esophagitis; Z79.899 Other long term (current) drug therapy; Z79.84 Long term (current) use of oral hypoglycemic drugs; R11.2 Nausea with vomiting, unspecified; E86.0 Dehydration
CPT/HCPCS: 99282

== ENCOUNTER 2025-06-21 15:57 | Emergency (ER) | payer MEDICAID, SELFPAY ==
[2025-06-21 15:58] VITALS: BP 111/74; PULSE 73; RESP 14; TEMP 36.6; O2SAT 100; BMI 25.9
--- NOTE | 2025-06-21 16:05 | RAD_ITS ---
PROCEDURE: LEFT HAND MIN 3 VIEWS 06/21/2025 REASON FOR EXAM: PAIN TECHNIQUE: Procedure Code: [place] Modality: DX Procedure: HAND MIN 3 VIEWS Laterality: Left COMPARISON: None. FINDINGS: No acute fracture or dislocation. Alignment is anatomic. Preserved joint spaces. No aggressive osseous lesion. No marked soft tissue swelling or radiopaque foreign body. RAD/Hand Min 3 Views IMPRESSION: No acute fracture or dislocation. Reading Location: [facility]
== END 2025-06-21 17:15 | disposition left against medical advice (07) ==
LOC: ED 17:18
DX: Z00.00 Encounter for general adult medical examination without abnormal findings (principal)
CPT/HCPCS: 73130